=== PATIENT | female | born 1965 | race Caucasian/White ===

== ENCOUNTER → 2018-02-09 | Day surgery (SDC) | payer OTHER ==
[~2018-02-09] VITALS: Ht 175.3 cm; Wt 81.0 kg
[~2018-02-09] MED LIST: *MEPERIDINE 25 MG INJ VIAL PERIprocedural Use ONLY ONE; ACETAMINOPHEN 1000 MG/100 ML 100 ML IV SCH; BUPIVACAINE LIPOSOME PF 1.3% 20 ML VIAL ONE; BUPIVACAINE/EPINEPHRINE 0.25% 50 ML VIAL ONE; BUPIVACAINE/EPINEPHRINE 0.25% PF 30 ML VIAL ONE; BUPIVACAINE/EPINEPHRINE 0.5% PF 30 ML VIAL ONE; CHLORHEXIDINE GLUCONATE 2 % 1 PACK (2 CLOTHS) TOPICAL PRN; CLAR10CA3 PO; FAMOTIDINE 20 MG/2 ML VIAL ONE; INSULIN HUMAN REGULAR 1,000 UNITS/10 ML VIAL SQ PRN; LACTATED RINGER'S 1000 ML IV PRN; METOPROLOL TARTRATE 25 MG TAB PO PRN; MORPHINE SULFATE 4 MG/ML INJ ONE; POVIDONE IODINE 5% (ANTISEPSIS KIT) 4 APPLICATIONS EACH NARE PRN; PRIL20TA2 PO; SERT-132 PO; SODIUM CHLORID 0.9% 500 ML IV PRN; ceFAZolin 2 GM PREMIX 50 ML IV SCH
[2018-02-09 10:30] VITALS: PULSE 68
--- NOTE | 2018-02-09 10:42 | PD.OP ---
cc: Guy Mccarthy MD; David Elmore MD Operative Report Date of Surgery: February 09, 2018 Preoperative Diagnosis: Ventral abdominal wall hernia Postoperative Diagnosis: Ventral abdominal wall hernia Procedure: Laparoscopic repair of ventral abdominal wall hernia Anesthesia: General endotracheal Surgeon: Guy Mccarthy Distribution Spec(s): None Operation and Findings: Operative findings: The patient was found to have a 2 cm ventral abdominal wall hernia with a large amount of omentum incarcerated within a larger sac. The omentum had minimal adhesions to the hernia sac itself and was easily reduced. There is no evidence of any visceral incarceration. There is a very small indentation at the umbilicus which did not at this point represent a true hernia. No other abnormalities are noted. Operative procedure: The patient was brought to the operating room and after satisfactory general endotracheal anesthesia obtained, a TAP block using Exparel was placed by Dr. Rivas. The abdomen was then prepped and draped in the usual sterile fashion. 0.5% Marcaine with epinephrine was used to infiltrate the skin for local anesthesia. A small incision was made below the left subcostal margin and the fascia bluntly. Finger dissection was able to enter the peritoneal cavity without problem and a 12 mm GelPort was placed. The balloon was engaged in the abdomen then insufflated 15 mmHg using carbon dioxide. The camera was inserted and visceral injury inspected for none being identified. Under direct visualization to other 5 ports were placed on the left side as well as another 5 port on the right side. The omentum was taken down from the hernia sac without problem and adhesions were divided with the harmonic scalpel. The harmonic scalpel was then used to clear the peritoneal surface of as much fatty tissue as possible. A 11.4 cm round [address]ra light ST patch was selected for repair. It was tightly rolled and placed within the peritoneal cavity without problem. A site of exit for the balloon insufflation device was selected and a small skin defect created. Using the Morrill suture passer, the insufflation tubing was brought externally and the mesh backbone then inflated. The mesh was brought into close approximation to the anterior abdominal wall. The mesh was then affixed to the abdominal wall with multiple absorbable tacks after which the mesh back bone was removed. The mesh was then completely tacked circumferentially several times to provide close approximation between the mesh and the anterior abdominal wall. Hemostasis was checked for and found to be satisfactory. The hernia defect was seen to be well covered in all directions by at least 5 cm and the umbilicus was covered as well. Hemostasis was again checked for and found to be satisfactory. The carbon dioxide was vented as completely as possible the atmosphere after which the ports were removed. The 12 mm fascial defect closed with interrupted 0 Vicryl sutures. The skin was then closed with interrupted 4-0 PDS subcuticular stitches. Steri- Strips were applied the patient was then awakened and taken from the operating room, in satisfactory condition, having tolerated the procedure without problem. Estimated blood loss was less than 10 mL's. The instrument, sponge, needle counts were reported as being correct 2 at the end of the procedure. Guy Mccarthy MD February 09, 2018 10:42
[2018-02-09 12:30] VITALS: BP 133/93; PULSE 73; RESP 16; TEMP 98.4; O2SAT 95
== END | disposition home or self-care (01) ==
LOC: PHSDC 06:08
PROVIDERS: ATTEND Surgery
DX: K43.9 Ventral hernia without obstruction or gangrene (principal); J30.9 Allergic rhinitis, unspecified; F41.8 Other specified anxiety disorders; F17.200 Nicotine dependence, unspecified, uncomplicated; C44.92 Squamous cell carcinoma of skin, unspecified; E78.5 Hyperlipidemia, unspecified; R73.9 Hyperglycemia, unspecified; E66.3 Overweight; Z68.26 Body mass index [BMI] 26.0-26.9, adult
CPT/HCPCS: 00752; 49652; 64486; C1781; C9290; J0131; J0690; J2175; J2270; J3010; J7120